=== PATIENT | male | born 1930 | race Caucasian/White ===

== ENCOUNTER 2018-09-04 15:35 | Emergency (ER) | payer MEDICARE, OTHER ==
[~2018-09-04] VITALS: Ht 172.7 cm; Wt 65.9 kg
[~2018-09-04 15:35] MED LIST: COU2.5T PO; DIGO250T PO; NAP220T PO
[2018-09-04] MEDS ORDERED: furosemide 10 MG/1 ML 10ml inj IV ONE (15:40)
[2018-09-04] MEDS ORDERED: CefTRIAXone 2gm/D5W 50ml 50 ML IV ONE (15:40)
[2018-09-04 16:26] LABS: BASOPHILS % (AUTO) 0.4 % (0-1); EOSINOPHILS # (AUTO) 0.2 X10'3 (0-0.9); EOSINOPHILS % (AUTO) 4.1 % (0-6); HEMATOCRIT 36.7 % (42.0-52.0); HEMOGLOBIN 12.4 g/dl (14.0-17.9); LYMPHOCYTES # (AUTO) 1.7 X10'3 (1.1-4.8); LYMPHOCYTES % (AUTO) 31.5 % (21-51); MEAN CORPUSCULAR HEMOGLOBIN 32.9 PG (27.0-31.0); MEAN CORPUSCULAR HGB CONC 33.7 g/dL (33.0-36.5); MEAN CORPUSCULAR VOLUME 97.6 FL (78-98); MEAN PLATELET VOLUME 8.4 FL (7.4-10.4); MONOCYTES # (AUTO) 0.4 X10'3 (0-0.9); MONOCYTES % (AUTO) 8.3 % (2-12); NEUTROPHILS % (AUTO) 55.7 % (42-75); PLATELET COUNT 142 X10'3 (140-440); RED BLOOD COUNT 3.76 X10'6 (4.70-6.10); WHITE BLOOD COUNT 5.4 X10'3 (4.5-11.0)
[2018-09-04 16:42] LABS: ALANINE AMINOTRANSFERASE 10 U/L (12-78); ALBUMIN 4.1 G/DL (3.4-5.0); ALBUMIN/GLOBULIN RATIO 1.1 (1.1-1.5); ALKALINE PHOSPHATASE 109 IU/L (46-116); ANION GAP 12 (8-16); ASPARTATE AMINO TRANSFERASE 22 U/L (10-37); BILIRUBIN,TOTAL 0.5 MG/DL (0.1-1.0); BLOOD UREA NITROGEN 18 MG/DL (7-18); CALCIUM 8.7 MG/DL (8.5-10.1); CHLORIDE 105 MMOL/L (99-107); GLUCOSE 79 MG/DL (70-104); POTASSIUM 3.5 MMOL/L (3.5-5.1); SODIUM 143 MMOL/L (135-145); TOTAL PROTEIN 7.7 G/DL (6.4-8.2); eGFR 70 ML/MIN
[2018-09-04] MEDS ORDERED: FURO-150 PO (17:10)
[2018-09-04] MEDS ORDERED: CEPH-571 PO (17:10)
[2018-09-04] MEDS ORDERED: POTA10TA19 PO (17:10)
[2018-09-04 18:32] VITALS: BP 126/89
== END 2018-09-04 18:36 | disposition home or self-care (01) ==
LOC: ER 15:35
DX: I73.89 Other specified peripheral vascular diseases (principal); L03.115 Cellulitis of right lower limb; I48.2 Chronic atrial fibrillation; R60.0 Localized edema; M19.90 Unspecified osteoarthritis, unspecified site; Z86.73 Personal history of transient ischemic attack (TIA), and cerebral infarction without residual deficits; Z98.890 Other specified postprocedural states; Z79.899 Other long term (current) drug therapy; Z79.01 Long term (current) use of anticoagulants
CPT/HCPCS: 36415; 80053; 83605; 84145; 85025; 87040; 93926; 93971; 96365; 96375; 99284; J0696; J1940